=== PATIENT | female | born 1940 | race Caucasian/White ===

== ENCOUNTER 2022-06-04 10:00 | Outpatient (CLI) | payer OTHER, SELFPAY ==
[2022-06-04 14:14] LABS: Anion Gap 7 mmol/L (8-16); Blood Urea Nitrogen 24 mg/dL (7-17); Calcium 8.8 mg/dL (8.4-10.2); Carbon Dioxide 29 mmol/L (22-30); Chloride 104 mmol/L (98-107); Estimated Glomerular Filt Rate > 60; Glucose 261 mg/dL (65-110); Potassium 3.5 mmol/L (3.4-5.0); Sodium 140 mmol/L (137-145)
== END 2022-06-04 10:01 | disposition home or self-care (01) ==
PROVIDERS: Anesthesiology; PCP Family Medicine Sports Medicine; Visit Provider Urology
DX: Z01.818 Encounter for other preprocedural examination (principal); E11.9 Type 2 diabetes mellitus without complications
CPT/HCPCS: 36415; 80048

== ENCOUNTER 2022-06-06 00:16 | Day surgery (SDC) | payer OTHER, SELFPAY ==
--- NOTE | 2022-06-03 07:17 | P.HP_ITS ---
History of Present Illness History of Present Illness Consent: Risks, benefits, and alternatives have been discussed and questions answered. Patient agrees to proceed with procedure. Chief complaint: bladder mass Narrative: Mariam Nicolas is a 82 year old female Recently referred for evaluation of a bladder mass. She was undergoing chest CT imaging for cardiac evaluation for possible valve replacement wanted abdominal and pelvic study showed a possible mass in her bladder. She has minimal voiding symptoms and no episodes of hematuria. Cystoscopy showed unusual, subepithelial solid looking growth in the left lateral wall just above the left ureteral orifice. After discussion of options she is elected to proceed with cystoscopy with left retrograde pyelography and bladder biopsy. She is aware the risk including, but not limited to, adverse cardiopulmonary events, hematuria and need for additional therapy. Review of Systems Cardiovascular: Cardiovascular: Denies chest pain, Denies lightheadedness, Denies palpitations and Denies dyspnea Respiratory: Respiratory: Denies dyspnea Gastrointestinal: Gastrointestinal: Denies diarrhea, Denies nausea and Denies vomiting Genitourinary: Genitourinary: Denies hematuria and Denies dysuria Endocrine: Endocrine: Denies palpitations Meds Home Medications and Allergies Allergies Allergy/AdvReac Type Severity Reaction Status Date / Time enalapril Allergy cough Verified 02/09/12 15:25 PCN Allergy rash Uncoded 02/09/12 15:25 SULFA Allergy rash Uncoded 02/09/12 15:25 Z-[id number] Allergy jittery Uncoded 02/09/12 15:25 Exam Const: General: no acute distress Resp: Effort & Inspection: normal respiratory effort GI: Inspection: non-distended GI Palp: No abdominal tenderness and No Guarding due to palpation present (GI) Auscultation: normal bowel sounds Assessment and Plan Assessment and plan (1) Bladder mass: Code(s): N32.89 - Other specified disorders of bladder Status: Acute Assessment and Plan: * Atypical, 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
--- NOTE | 2022-06-03 13:06 | PC.NURSE ---
Report to the Outpatient Waiting Room, entrance under the green pavilion located off [facility], at time _0600 on date __06/06/22 . Planned Procedure Time: _0730 . Time changes happen often and if your time is changed the preop area will call you the afternoon before. - You and your visitor will be asked to self-screen and do not enter if you have any COVID symptoms. - Only one visitor is requested with a max of two and NO children visitors are allowed at this time. - The patient visitor may be requested to leave or wait in car when not with patient due to distancing restrictions. - A mask is optional within the hospital at this time. Patients may have clear liquids (water, carbonated beverages, clear teas, apple juice) until 3 hours prior to surgery with a maximum of 20 ounces. - No food from midnight until time of surgery - Infants may have breast milk until 4 hours before surgery, formula 6 hours prior to surgery. - Children will be allowed to drink immediately following surgery. If applicable, please bring a bottle or sippy cup to assist with drinking. Juice, water, soda, and popsicles are readily available. For infants on formula, please bring formula the day of surgery. Pacifiers are allowed. Take the following medications with a SIP of water the morning of surgery: __ATENOLOL,LEVOTHYROXINE,AND SERTRALINE DO NOT STOP ANY OF YOUR OTHER PRESCRIPTION MEDICATIONS PRIOR TO SURGERY ?EXCEPT THE FOLLOWING Medications to discontinue per physician __PT STATES ASPIRIN 7 DAYS PRE OP PER DR LEE.LAST DOSE 06/03/22 Please no make-up, nail new zealander, hairspray, perfume, deodorant, or body powder the day of surgery. No jewelry (including any body piercings) or valuables the day of surgery, leave them at home. Please take a shower or bath the night before, or the morning of, surgery with an antibacterial soap. Wear comfortable, loose fitting clothing. Children are encouraged to wear pajamas. - Jewelry must be removed prior to entering the operating room. Rings and piercings that are not removed may be cut off. - The hospital will not accept responsibility for valuables. - Please leave all valuables, including medications, at home the day of surgery. If you are going home after surgery, a licensed concrete mixing truck driver must drive you home. - NO public transportation without another adult if you receive anesthesia. - We recommend that an adult stay with you for 24 hours following discharge. - We also recommend that you do not drive, make important decision, drink alcoholic beverages, or take any drugs that were not prescribed by your health care provider for at least 24 hours after your discharge time. For Pediatric surgeries, we recommend two adults accompany the child home. Follow any additional instructions given to you from your surgeon. If you or anyone in your household have experienced Covid symptoms in the past week, please notify your surgeon or the nurse liaison at the phone number below for possible testing. Telephone instructions given to ___PATIENT and asked if any additional questions and then verbalized understanding. Patient advised to call surgeon office or pre surgery nurse liaison [phone] if any additional questions.
[2022-06-03 13:36] VITALS: BMI 35.9
--- NOTE | ~2022-06-06 | XR_ITS ---
EXAMINATION: XR retrograde pyelogram LT DATE: 06/06/2022 08:04 [employer] INDICATION: Evaluate left ureter TECHNIQUE: 47 fluoroscopic images from a left retrograde pyelogram are submitted for review. 15 secon ds of fluoroscopy. FINDINGS: There is normal retrograde filling of the left ureter and renal pelvis. No filling defects or strictures identified. Left renal calyces are normally cupped. IMPRESSION: 1. Unremarkable left retrograde pyelogram.. Correlate with real time procedural findings for details . Reviewed, dictated and finalized at location L. [employer] AL[employer] INSTALLER IMPRESSION: 1. Unremarkable left retrograde pyelogram.. Correlate with real time procedura l findings for details.
[2022-06-06 06:08] VITALS: BP 109/81; PULSE 84; RESP 20; TEMP 36.4; O2SAT 96
[2022-06-06] MEDS: LACTATED RINGERS 1,000 ML 30 ML IV CONT (06:15)
[2022-06-06 06:37] LABS: Glucose Point of Care 273 mg/dl (65-105)
--- NOTE | 2022-06-06 06:41 | WPDHPUPDATE1 ---
History and Physical Update Update Date/Time: 06/06/22 06:41 History and Physical has been reviewed, including an updated exam of the patient. There are NO changes in the patient's condition. Risks, benefits, and alternatives have been discussed and questions answered. Patient agrees to proceed with procedure.
--- NOTE | 2022-06-06 07:09 | WPDANESEPPF ---
Anes - Initial Pre Proc Eval Procedure: Operation Date: 06/06/22 07:30 Proposed Procedures p Transurethral Resection of Bladder Tumor - Carlos Lees MD s Left Retrograde Pyelogram - Carlos Lees MD Date/Time: 06/06/22 07:09 Surgeon: Carlos Lees MD Pre Op Diagnosis: bladder mass Patient Data Age: 82 Gender: F Height: 1.6 m Weight: 92.6 kg Last Vital Signs Temp 97.6 F 06/06/22 06:08 Pulse 84 06/06/22 06:08 Resp 20 06/06/22 06:08 BP 109/81 06/06/22 06:08 Pulse Ox 96 06/06/22 06:08 O2 Del Method Room Air 06/06/22 06:08 Allergies Allergy/AdvReac Type Severity Reaction Status Date / Time azithromycin Allergy Unknown Jittery Verified 06/06/22 06:55 Penicillins Allergy Unknown Rash Verified 06/06/22 06:55 Sulfa (Sulfonamide Allergy Unknown Rash Verified 06/06/22 06:55 Antibiotics) cephalexin [From Keflex] Allergy Rash Verified 06/06/22 06:55 enalapril Allergy cough Verified 06/06/22 06:13 levofloxacin [From Levaquin] Allergy Rash Verified 06/06/22 06:55 Home Medications Medication Instructions Recorded Confirmed Type aspirin 81 mg tablet,delayed 81 mg PO DAILY 06/03/22 06/06/22 History release (Adult Low Dose Aspirin) atenolol 50 mg tablet 50 mg PO BID 06/03/22 06/06/22 History atorvastatin 20 mg tablet 20 mg PO QPM 06/03/22 06/06/22 History cyclosporine 0.05 % eye drops in a 1 drp EACH EYE Q12H 06/03/22 06/06/22 History dropperette (Restasis) furosemide 80 mg tablet 80 mg PO BID 06/03/22 06/06/22 History insulin aspart U-100 100 unit/mL 100 sliding scale dose continuous 06/03/22 06/03/22 History subcutaneous solution (Novolog subcutaneous infusion DAILY U-100 Insulin aspart) levothyroxine 125 mcg tablet 125 mcg PO DAILY 06/03/22 06/06/22 History (Synthroid) sertraline 50 mg tablet 50 mg PO DAILY 06/03/22 06/06/22 History valsartan 160 mg tablet 160 mg PO DAILY 06/03/22 06/06/22 History Laboratory Tests 06/06/22 06:34 POC Capillary Glucose 273 mg/dl H mg/dl (65-105) Patient hx anesthesia problems: none Family hx anesthesia problems: none Results Review: All pre-operative results and documents have been reviewed as part of the pre-operative evaluation. REPLACED BY [facility] Social History Social History Smoking status: Never smoker Living arrangements: alone Spiritual care concerns: No Anes - Eval Final PreProcedure Day of Procedure 06/06/22 07:09 Patient weight: obese Heart: regular rate and rhythm Lungs: clear to auscultation Airway: Mallampati scale class II Neurological: alert and oriented Last oral intake: >/= 8 hours ASA classification: III Emergent: no Anesthetic plan: proceed Anesthesia type and monitoring: general LMA and standard monitoring Results Review: All pre-operative results and documents have been reviewed as part of the pre-operative evaluation. Informed Consent: The patient's anesthetic plan and its attendant risks and benefits were discussed with the patient/family/POA. Questions were solicited and answers provided to the satisfaction of the patient/family/POA.
[2022-06-06] MEDS: GENTAMICIN 80MG/SOD CHL 50 ML 80 MG/50 ML BAG 100 MG IVPB (07:22)
--- NOTE | 2022-06-06 07:54 | W.PM.PROC2 ---
Procedure Note - Detailed Date of Procedure 06/06/22 Pre-op Diagnosis Bladder mass Post-op Diagnosis Same Procedure Performed Cystoscopy, left retrograde pyelography and bladder biopsy Surgeon Carlos Lees MD Anesthesia General Findings 1. Essentially normal cystoscopy 2 Normal left retrograde pyelography Description of Procedure Patient is brought to the operative stricture she has prepped draped in routine sterile fashion while in dorsal lithotomy position after the uneventful induction of general LMA anesthetic. Cystoscopy is undertaken with a 21 F rigid cystoscope. Urine was collected for cytology. The bladder neck urethra are endoscopically normal. The bladder, today, is likewise endoscopically normal. The unusual small subepithelial mass like structure above her left ureteral orifice is not identifiable today. The bladder mucosa is without hyperemia. I did obtain a left retrograde pyelogram using did 8 F bulb tip catheter. This shows no points of obstruction filling defect or other abnormalities in the left ureter or collecting system. Using the cold cup biopsy of did obtained a single biopsy at the site previously in question and cauterized the base with a Bugbee electrode. Drains No Packing No Pathology Yes Complications No immediate complications Condition Stable
[2022-06-06 07:58] VITALS: BP 164/94; PULSE 79; RESP 15; TEMP 36.6; O2SAT 100
[2022-06-06 08:02] LABS: Glucose Point of Care 274 mg/dl (65-105)
[2022-06-06 08:10] VITALS: BP 152/61; PULSE 60; RESP 16; O2SAT 100
--- NOTE | 2022-06-06 08:20 | SUR.PHASEI ---
0857 - dr cota aware of pt's accucheck 274. will have pt adjust insulin pump accordingly
[2022-06-06 08:25] VITALS: BP 149/62; PULSE 60; RESP 16; O2SAT 99
[2022-06-06 08:30] VITALS: BP 152/62; PULSE 79; RESP 16
[2022-06-06 09:00] VITALS: BP 142/54; PULSE 60; RESP 16
== END 2022-06-06 09:34 | disposition home or self-care (01) ==
PROVIDERS: PCP Family Medicine Sports Medicine; Visit Provider Urology
PROC: 0TBB8ZZ Excision of Bladder, Via Natural or Artificial Opening Endoscopic (ICD-10-PCS; CPT 52204; principal; 2022-06-06 07:30)
PROC: (CPT 52352; 2022-06-06 07:30)
DX: N32.89 Other specified disorders of bladder (principal); Z79.82 Long term (current) use of aspirin; Z79.4 Long term (current) use of insulin; E66.9 Obesity, unspecified; Z68.36 Body mass index [BMI] 36.0-36.9, adult
CPT/HCPCS: 52204; 36415; 74420; 80048; 82948; 88108; 88305; C1758; C1769; J1100; J1580; J2405; J2704; J7120